=== PATIENT | male | born 1985 | race American Indian/Alaskan Native ===

== ENCOUNTER 2021-08-26 09:38 | Emergency (ER) | payer OTHER ==
[2021-08-26 11:19] VITALS: BP 165/114
[2021-08-26] MEDS ORDERED: BENZONATATE 100 MG CAP PO ONE (11:47)
[2021-08-26] MEDS ORDERED: LIDOCAINE VISCOUS 2% 15 ML ORAL LIQD MM ONE (11:49)
--- NOTE | 2021-08-26 12:12 | Emergency Department Report ---
- General Chief Complaint: Upper Respiratory Infection Stated Complaint: CAN'T SWALLOW, BODY ACHES, STUFFY NOSE, COUGH Time Seen by Provider: 08/26/21 11:19 Source: patient Mode of arrival: Ambulatory Limitations: No Limitations - History of Present Illness Initial Comments: This is a 36-year-old male nontoxic, well nourished in appearance, no acute signs of distress presents to the ED with c/o of productive cough, sore throat, rhinorrhea, nasal congestion x several days. Patient describes productive cough as yellow mucus production. Patient denies any sick contact. Patient denies any recent travels, long car, recent hospital stays. Patient denies any calf pain or calf tenderness. Patient denies any chest pain, short of breath, fever, chills, nausea, vomiting, hemoptysis, numbness, tingling, headache or stiff neck. Patient stated has Covid vaccine and had a negative Covid testing yesterday. Patient stated has past medical history of hypertension during and stated does follow-up with her primary care doctor regarding this and has appointment next week for this. MD Complaint: cough, sore throat, rhinorrhea, nasal congestion -: days(s) Severity: mild Severity scale (0 -10): 3 Consistency: constant Improves With: nothing Worsens With: other (swallowing) Associated Symptoms: rhinorrhea, nasal congestion, sore throat, cough. denies: fever, chills, myalgias, diaphoresis, headache, stiff neck, chest pain, shortness of breath, abdominal pain, nausea, vomiting, diarrhea, dysuria, rash, confusion, right sweats, weight loss, epistaxis, hoarseness, ear pain Treatments Prior to Arrival: none - Related Data Previous Rx's Medication Instructions Recorded Last Taken Type Azithromycin [Zithromax Z-BENOIT] 250 mg PO DAILY #6 tablet 08/26/21 Unknown Rx Benzonatate [Tessalon Perles] 100 mg PO Q8HR PRN #12 capsule 08/26/21 Unknown Rx Allergies Allergy/AdvReac Type Severity Reaction Status Date / Time dicyclomine AdvReac Hives Verified 08/26/21 09:42 gabapentin AdvReac Hives Verified 08/26/21 09:42 tramadol AdvReac Itching Verified 08/26/21 09:42 ED Review of Systems ROS: Stated complaint: CAN'T SWALLOW, BODY ACHES, STUFFY NOSE, COUGH Other details as noted in HPI Comment: All other systems reviewed and negative Constitutional: denies: chills, fever Eyes: denies: eye pain, eye discharge, vision change ENT: throat pain, congestion. denies: ear pain Respiratory: cough. denies: shortness of breath, wheezing Cardiovascular: denies: chest pain, palpitations Endocrine: no symptoms reported Gastrointestinal: denies: abdominal pain, nausea, diarrhea Genitourinary: denies: urgency, dysuria Musculoskeletal: denies: back pain, joint swelling, arthralgia Skin: denies: rash, lesions Neurological: denies: headache, weakness, paresthesias Psychiatric: denies: anxiety, depression Hematological/Lymphatic: denies: easy bleeding, easy bruising ED Past Medical Hx - Social History Smoking Status: Never Smoker Substance Use Type: None - Medications Home Medications: Home Medications Medication Instructions Recorded Confirmed Last Taken Type Azithromycin [Zithromax Z-BENOIT] 250 mg PO DAILY #6 tablet 08/26/21 Unknown Rx Benzonatate [Tessalon Perles] 100 mg PO Q8HR PRN #12 capsule 08/26/21 Unknown Rx ED Physical Exam - General Limitations: No Limitations General appearance: alert, in no apparent distress - Head Head exam: Present: atraumatic, normocephalic - Eye Eye exam: Present: normal appearance - Expanded ENT Exam Expanded Ear exam: Present: normal external inspection Mouth exam: Present: normal external inspection, tongue normal. Absent: drooling, trismus, muffled voice Teeth exam: Present: normal inspection Throat exam: Positive: tonsillar erythema, tonsillomegaly (2+), other. Negative: tonsillar exudate, R peritonsillar mass, L peritonsillar mass - Neck Neck exam: Present: normal inspection, full ROM. Absent: tenderness, meningismus, lymphadenopathy - Respiratory Respiratory exam: Present: normal lung sounds bilaterally. Absent: respiratory distress, wheezes, rales, rhonchi, stridor, chest wall tenderness, accessory muscle use, decreased breath sounds, prolonged expiratory - Cardiovascular Cardiovascular Exam: Present: regular rate, normal rhythm, normal heart sounds. Absent: bradycardia, tachycardia, irregular rhythm, diastolic murmur, rubs, ga llop - Extremities Exam Extremities exam: Present: normal inspection, full ROM, normal capillary refill. Absent: tenderness - Back Exam Back exam: Present: normal inspection, full ROM. Absent: tenderness, CVA tenderness (L), muscle spasm, paraspinal tenderness, vertebral tenderness, rash noted - Neurological Exam Neurological exam: Present: alert, oriented X3, normal gait - Psychiatric Psychiatric exam: Present: normal affect, normal mood - Skin Skin exam: Present: warm, dry, intact, normal color. Absent: rash ED Course Vital Signs 08/26/21 08/26/21 11:16 11:18 Temperature 98.8 F 98.8 F Pulse Rate 63 63 Respiratory 14 14 Rate Blood Pressure 165/114 Blood Pressure 165/114 [Right] O2 Sat by Pulse 100 100 Oximetry - Reevaluation(s) Reevaluation #1: 08/26/21 12:14 Patient is speaking in full sentences with no signs of distress noted. ED Medical Decision Making - Radiology Data [facility] [address] [place] [address] XRay Report Signed Patient: ROMAINE REIS MR#: [id number] : 1985 Acct:[id number] Age/Sex: 36 / M ADM Date: 08/26/21 Loc: ED Attending Dr: Ordering Physician: KASSI العلي NP Date of Service: 08/26/21 Procedure(s): XR chest routine 2V Accession Number(s): [id number] cc: KASSI العلي NP Fluoro Time In Minutes: CHEST PA AND LATERAL VIEWS INDICATION: cough. COMPARISON: None. FINDINGS: Support devices: None. Heart: Within normal limits. Lungs/Pleura: There are subtle airspace opacities in the right lower lung on PA view. Left lung is clear. No pleural abnormality. IMPRESSION: 1. Mild, patchy right lower lung pneumonia. Signer Name: Dwaine Scales MD Signed: 08/26/2021 12:31 PM Workstation Name: [email or web address] Transcribed By: ROBBY Dictated By: Dwaine Scales MD Electronically Authenticated By: Dwaine Scales MD Signed Date/Time: 08/26/21 1231 DD/ 1231 TD/TT: - Medical Decision Making This is a 36-year-old male that presents with PNA and tonsillitis. Patient is stable and was examined by me. Chest x-ray has been obtained and dictated by radiologist. Patient is notified of x-ray results with no questions noted. 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 I will discharge patient with Z-Benoit. Patient was instructed to increase hydration, rest and take Motrin for fever episodes. Patient received tesslone perrls in the ED. Vitals stable. Patient is nonfebrile and normal heart rate. Patient was instructed Follow-up with a primary care doctor in 3-5 days or if symptoms worsen and continue return to emergency room as soon as possible. At time time of discharge, the patient does not seem toxic or ill in appearance. No acute signs of distress noted. Patient agrees to discharge treatment plan of care. No further questions noted by the patient. Critical care attestation.: If time is entered above; I have spent that time in minutes in the direct care of this critically ill patient, excluding procedure time. ED Disposition Clinical Impression: Tonsillitis PNA (pneumonia) Qualifiers: Pneumonia type: due to unspecified organism Laterality: right Lung location: unspecified part of lung Qualified Code(s): J18.9 - Pneumonia, unspecified organism Disposition: 01 HOME / SELF CARE / HOMELESS Is pt being admited?: No Does the pt Need Aspirin: No Condition: Stable Instructions: Bacterial Pneumonia (ED), Community-Acquired Pneumonia, Adult, Tonsillitis Additional Instructions: Follow-up with a primary care doctor in 3-5 days or if symptoms worsen and continue return to emergency room as soon as possible. You must follow your work protocols with pneumonia and suspected Covid when returning to work. Prescriptions: Benzonatate [Tessalon Perles] 100 mg PO Q8HR PRN #12 capsule PRN Reason: Cough Azithromycin [Zithromax Z-BENOIT] 250 mg PO DAILY #6 tablet Referrals: PRIMARY CAREMD [Primary Care Provider] - 3-5 Days AGGIE MENDEZ MD [Staff Physician] - 3-5 Days Forms: Work/School Release Form(ED) Time of Disposition: 12:54
--- NOTE | 2021-08-26 12:35 | XRay Report ---
CHEST PA AND LATERAL VIEWS INDICATION: cough. COMPARISON: None. FINDINGS: Support devices: None. Heart: Within normal limits. Lungs/Pleura: There are subtle airspace opacities in the right lower lung on PA view. Left lung is cl ear. No pleural abnormality. IMPRESSION: 1. Mild, patchy right lower lung pneumonia. Signer Name: Dwaine Scales MD Signed: 08/26/2021 12:31 PM Workstation Name: [email or web address]
== END 2021-08-26 13:32 | disposition home or self-care (01) ==
LOC: ED 09:38
DX: J18.9 Pneumonia, unspecified organism (principal); Z79.899 Other long term (current) drug therapy
CPT/HCPCS: 71046; 99283